=== PATIENT | male | born 1995 | race Caucasian/White ===

== ENCOUNTER 2024-05-22 20:55 | Inpatient (IN) | payer MEDICARE, MEDICAID ==
[2024-05-22] MEDS ORDERED: ACETAMINOPHEN TAB 325 MG TAB PO PRN (20:59)
[2024-05-22] MEDS ORDERED: IBUPROFEN 600 MG TAB PO PRN (20:59)
[2024-05-22] MEDS ORDERED: MAG HYDROX/AL HYDROX/SIMETH 355 ML BOTTLE PO PRN (20:59)
[2024-05-22] MEDS ORDERED: MAGNESIUM HYDROXIDE 2,400 MG/30 ML CUP PO PRN (20:59)
[2024-05-22] MEDS ORDERED: haloperidoL 5 MG TAB PO PRN (20:59)
[2024-05-22] MEDS ORDERED: HALOPERIDOL LACTATE 5 MG/ML 1 ML VIAL IM PRN (20:59)
[2024-05-22] MEDS ORDERED: LORazepam 2 MG/ML INJ IM PRN (20:59)
[2024-05-22] MEDS: LORazepam 1 MG TAB PO PRN (23:25)
--- NOTE | 2024-05-23 04:02 | P.PN ---
Progress Note - Text Progress Note Date: 05/23/24 Attempted to see the patient in the MHU. Informed by the MHU RN that the patient is currently sedated and inappropriate for evaluation. I will attempt to see the patient again tomorrow.
[2024-05-23] MEDS: NICOTINE 14MG/24HR PATCH TRANSDERM SCH (10:22)
[2024-05-23 13:57] LABS: Basophils # (A) 0.1 k/uL (0-0.2); Basophils % (A) 2 %; Eosinophils # (A) 0.1 k/uL (0-0.7); Eosinophils % (A) 3 %; HCT 42.1 % (39.0-53.0); HGB 13.8 gm/dL (13.0-17.5); Lymphocytes # (A) 1.4 k/uL (1.0-4.8); Lymphocytes % (A) 34 %; MCH 29.5 pg (25.0-35.0); MCHC 32.9 g/dL (31.0-37.0); MCV 89.8 fL (80.0-100.0); Mean Platelet Volume 6.8; Monocytes # (A) 0.2 k/uL (0-1.0); Monocytes % (A) 5 %; Neutrophils # (A) 2.3 k/uL (1.3-7.7); Neutrophils % (A) 54 %; Platelet Count 289 k/uL (150-450); RDW 13.7 % (11.5-15.5); WBC 4.2 k/uL (3.8-10.6)
[2024-05-23 14:18] LABS: ALT 15 U/L (4-49); AST 18 U/L (17-59); African American GFR (CKD) >90 (>60 ml/min/1.73 sqM); Albumin 4.3 g/dL (3.5-5.0); Alkaline Phosphatase 62 U/L (38-126); Anion Gap 2 mmol/L; Bilirubin, Delta 0.1 mg/dL (0.0-0.2); Bilirubin,Unconjugated 0.7 mg/dL (0.0-1.1); Blood Urea Nitrogen 13 mg/dL (9-20); Calcium 9.5 mg/dL (8.4-10.2); Carbon Dioxide 26 mmol/L (22-30); Chloride 107 mmol/L (98-107); Glucose 90 mg/dL (74-99); Non-African American GFR(CKD) >90 (>60 ml/min/1.73 sqM); Potassium 4.5 mmol/L (3.5-5.1); Sodium 135 mmol/L (137-145); Total Bilirubin 0.8 mg/dL (0.2-1.3); Total Protein 6.7 g/dL (6.3-8.2)
--- NOTE | 2024-05-23 14:52 | P.HP ---
Psychiatric H&P - . H&P Date: 05/23/24 History & Physical: Allergies Allergy/AdvReac Type Severity Reaction Status Date / Time No Known Allergies Allergy Verified 05/23/24 03:27 Vital Signs Temp 98.5 F 05/23/24 06:53 Pulse 87 05/23/24 06:53 Resp 15 05/23/24 06:53 BP 94/58 05/23/24 06:53 Pulse Ox 100 05/23/24 06:53 FiO2 Intake & Output 05/22/24 05/23/24 05/23/24 18:59 06:59 18:59 Weight 77.5 kg Laboratory Last Values WBC 4.2 k/uL (3.8-10.6) 05/23/24 13:34 RBC 4.70 m/uL (4.30-5.90) 05/23/24 13:34 Hgb 13.8 gm/dL (13.0-17.5) 05/23/24 13:34 Hct 42.1 % (39.0-53.0) 05/23/24 13:34 MCV 89.8 fL (80.0-100.0) 05/23/24 13:34 MCH 29.5 pg (25.0-35.0) 05/23/24 13:34 MCHC 32.9 g/dL (31.0-37.0) 05/23/24 13:34 RDW 13.7 % (11.5-15.5) 05/23/24 13:34 Plt Count 289 k/uL (150-450) 05/23/24 13:34 MPV 6.8 05/23/24 13:34 Neutrophils % 54 % 05/23/24 13:34 Lymphocytes % 34 % 05/23/24 13:34 Monocytes % 5 % 05/23/24 13:34 Eosinophils % 3 % 05/23/24 13:34 Basophils % 2 % 05/23/24 13:34 Neutrophils # 2.3 k/uL (1.3-7.7) 05/23/24 13:34 Lymphocytes # 1.4 k/uL (1.0-4.8) 05/23/24 13:34 Monocytes # 0.2 k/uL (0-1.0) 05/23/24 13:34 Eosinophils # 0.1 k/uL (0-0.7) 05/23/24 13:34 Basophils # 0.1 k/uL (0-0.2) 05/23/24 13:34 Sodium 135 mmol/L (137-145) L 05/23/24 13:34 Potassium 4.5 mmol/L (3.5-5.1) 05/23/24 13:34 Chloride 107 mmol/L (98-107) 05/23/24 13:34 Carbon Dioxide 26 mmol/L (22-30) 05/23/24 13:34 Anion Gap 2 mmol/L 05/23/24 13:34 BUN 13 mg/dL (9-20) 05/23/24 13:34 Creatinine 0.74 mg/dL (0.66-1.25) 05/23/24 13:34 Est GFR (CKD-EPI)AfAm >90 (>60 ml/min/1.73 sqM) 05/23/24 13:34 Est GFR (CKD-EPI)NonAf >90 (>60 ml/min/1.73 sqM) 05/23/24 13:34 Glucose 90 mg/dL (74-99) 05/23/24 13:34 Calcium 9.5 mg/dL (8.4-10.2) 05/23/24 13:34 Total Bilirubin 0.8 mg/dL (0.2-1.3) 05/23/24 13:34 Conjugated Bilirubin 0.0 mg/dL (0.0-0.3) 05/23/24 13:34 Unconjugated Bilirubin 0.7 mg/dL (0.0-1.1) 05/23/24 13:34 Delta Bilirubin 0.1 mg/dL (0.0-0.2) 05/23/24 13:34 AST 18 U/L (17-59) 05/23/24 13:34 ALT 15 U/L (4-49) 05/23/24 13:34 Alkaline Phosphatase 62 U/L (38-126) 05/23/24 13:34 Total Protein 6.7 g/dL (6.3-8.2) 05/23/24 13:34 Albumin 4.3 g/dL (3.5-5.0) 05/23/24 13:34 05/23/24 14:46 IDENTIFYING DATA: Patient is a 28-year-old male, currently homeless collects Social Security disability, he is single he has no kids. HPI: Patient presented to the hospital as a transfer from [facility]. According to E APS report he apparently attempted to overdose on multiple recreational drugs, was endorsing depression suicidal ideations also endorsing visual and auditory hallucinations prior to arrival. Patient was seen today wandering the hallways agreeable to speak to appeals writer. He had several cuts and scars over his arms, appeared to be disheveled in appearance. States that he was at [facility] for 1-1/2 days waiting for placement. Claims that he arrived yesterday. Claims that he has been making "a lot of bad decisions" and states that he has been hanging around "bad people". He was fairly vague about what he was referring to. He states that he has been using several different drugs recently. States that he does have a long substance use history. He spoke about using meth, heroin, crack cocaine marijuana and also cigarettes. States that he has been feeling more depressed lately. States that he also deals with anxiety. Claims that he still feeling minor withdrawals from drugs. He was fairly irritable during conversation and argumentative at times. Claims that he is endorsing some paranoia, sleep has been on and off appetite has been fair. Patient denies any current suicidal or homicidal ideations intent or plan. At this time patient denies any auditory or visual hallucinations. Patient admits to using methamphetamine, cocaine, heroin, THC regularly, claims that he smokes cigarettes daily. He was fairly vague about his drug use. PAST PSYCHIATRIC HISTORY: Patient has a history of polysubstance abuse, states that he also has a history of schizoaffective disorder and traumatic brain injury. He claims that he has been on several different psychiatric medications in the past, most notably he has been on Haldol D1 100 mg given by the [facility] in [place]. Is been psychiatrically admitted several times in the past, claims that he most recently was admitted to [facility]. States that he has had several different suicide attempts in the past including overdosing and cutting himself. PMH: as per ER note ALLERGIES: as per EMR CHEMICAL DEPENDENCY HISTORY: as per HPI FAMILY PSYCHIATRIC/SUBSTANCE USE HISTORY: Denies SOCIAL HISTORY: Patient was born and raised in claims that he grew up in [place]. Claims that he completed high school states that he has been in intermediate in the past for probation violation. He is single, he has no kids, he collect Social Security disability. He is homeless. MENTAL STATUS EXAM: General Appearance: Patient appears to be disheveled in appearance, several scars and cuts on his arms, stated age is alert, irritable,. Patient appears to have poor hygiene and grooming. Behavior: Patient is seated without any agitated behavior. Irritable tone, argumentative. Speech: Patient's speech is fluent and nonpressured. Mood/Affect: Patient reports their mood is depressed, affect is congruent and constricted. Suicidality/Homicidality: Patient denies having any homicidal ideation intent or plan. Denies any suicidal ideations intent or plan Perceptions: Patient denies any visual hallucinations and denies any auditory hallucinations Though content/process: There is no evidence of any delusional thought content and thought process is linear and goal-directed. On [place], evasive. Memory and concentration: AOX3, grossly intact for the purposes of this session. Can spell "WORLD" backwards Judgment and insight: Poor STRENGTHS/WEAKNESSES: strength is that patient is resilient. Weakness is that patient has poor judgment and is impulsive INTELLECT: Average IMPRESSIONS: Suicide attempt by overdose on recreational drugs Schizoaffective disorder Traumatic brain injury Methamphetamine use disorder Opioid abuse Cocaine abuse Cannabis use disorder Nicotine dependence Homelessness PLAN: -Patient is admitted under voluntary status to MHU for stabilization of psychiatric symptoms and safety. Patient has signed adult voluntary form and medication consent and is placed in patient's chart. -Medications : Start Prolixin 2.5 mg twice daily for psychosis/mood stabilization, Zoloft 50 mg nightly for mood/anxiety, Remeron 15 mg nightly for sleep/mood. -Ativan and Haldol PRN for agitation/aggression -Patient was counselled on substance abuse and desired to cut back on use -Patient was informed of the risks, benefits and side effects of the medication and patient verbally consented to taking the medications. Patient signed med consent form and was placed in chart. -Internal Medicine consult to perform medical evaluation and physical. -NRT -nicotine patch -SW on board for discharge planning. Encourage patient to participate in groups to work on coping skills.
[2024-05-23] MEDS: MIRTAZAPINE 15 MG TAB PO SCH (21:23)
[2024-05-23] MEDS: SERTRALINE 50 MG TAB PO SCH (21:23)
[2024-05-23 23:15] LABS: Chol/HDL Ratio 2.29 Ratio; LDL Cholesterol,Calculated 43.1 mg/dL (0.0-131.0); VLDL Calculation 19.96 mg/dL (5.00-40.00)
--- NOTE | 2024-05-24 04:54 | P.PN ---
Progress Note - Text Progress Note Date: 05/24/24 Attempted to see the patient in the MHU on 05/23 at 2100. The patient refused to be seen or be evaluated.
--- NOTE | 2024-05-24 13:13 | P.PN ---
Progress Note - Text Progress Note Date: 05/24/24 Follow-up Mediation Review Chief Complaint: I am suicidal Subjective: The patient noted that he got admitted due to suicidal thoughts and hearing voices. The patient has h/o of several suicide attempts in the past. He wanted to take overdose of recreational drugs before coming to the hospital. The patient noted that he got depressed because he is unable to give up drugs. He wants to go to rehab from the hospital He noted using Meth and heroin. The patient noted that he is on disability for Bipolar, Schizoaffective ADHD and TBI. He started doing drugs around age 25. The patient Leading questions: The patient admitted to Depression and Anxiety. Admits SI. No HI. Admits to hearing voices. Sleep and Appetite: Impaired. Change in family/ living/job/financial/daily routine: No change. Change in medical condition: No change. Change in medications: No change. Side effects from Medications: None. Allergies: No change. Objective- MSE: Alert and attentive. Orientation times three. Dressed and Groomed: Appropriately. Pleasant and cooperative. Psychomotor Activity: Normal. Speech: Normal in tone, quality, and quantity. Mood: Depressed and anxious. Affect: Consistent with mood. SI or HI: None. Perceptual disturbance: Hears voices. Thought Content: No paranoia or other delusional thinking noted. Thought Process: Normal. Cognition: Intact Judgment and Insight: Poor. AIMS: Normal. Labs: No new labs. Diagnosis: Plan and Recommendations: Continue current Medications. Monitor MS and side effects of medications and adjust medications accordingly. Provide supportive psychotherapy. The patient provided psychoeducation and advised The patient provided Substance abuse counseling. Smoke cessation therapy. The patient to attend dumont activities. Medication Consent with explanation of risk/benefits and side effects: Explained and obtained.
[2024-05-25 07:18] VITALS: RESP 16; TEMP 97.7
--- NOTE | 2024-05-26 00:38 | P.PN ---
Progress Note - Text Progress Note Date: 05/26/24 Attempted to see the patient in the MHU at 1999 on 05/25. The patient refused to be seen or be evaluated. The patient's laboratory evaluation was reviewed with TSH 0.267 with a free T4 within normal limits at 1.00.
[2024-05-26 06:50] VITALS: BP 111/72; PULSE 64
--- NOTE | 2024-05-26 06:53 | P.PN ---
Progress Note - Text Progress Note Date: 05/25/24 Follow-up Mediation Review Chief Complaint: I am coming off drugs Subjective: The patient noted that coming off drugs is hard. He feels tired and spends most of the time in his bed. He noted he is not suicidal, homicidal, or hearing voices. He indicated that he heard voices because of the drugs he was taking. He wants to go for rehab. He does not think that he needs treatment for depression. He noted that he has not been depressed or suicidal since admission. He noted that he was admitted for being suicidal and hearing voices. He wants to be discharged. He feels the medications are helping. He has plans to go to rehab. He has talked to rehab facility. certified social workers in health care will find out about his acceptance. Leading questions: The patient denied being depressed. Denied SI or HI. Denied paranoia any other delusional thinking or hearing voices. Sleep and Appetite: Impaired. Objective- MSE: Alert and attentive. Orientation times three. Dressed and Groomed: Appropriately. Pleasant and cooperative. Psychomotor Activity: Normal. Speech: Normal in tone, quality, and quantity. Mood: Mild anxiety. Affect: Consistent with mood. SI or HI: None. Perceptual disturbance: None. Thought Content: No paranoia or other delusional thinking noted. Thought Process: Normal. Cognition: Intact Judgment and Insight: Fair. AIMS: Normal. Labs: No new labs. Diagnosis: No change. Plan and Recommendations: Continue current Medications. Monitor MS and side effects of medications and adjust medications accordingly. Provide supportive psychotherapy. The patient provided psychoeducation and advised The patient provided Substance abuse counseling. Smoke cessation therapy. The patient to attend dumont activities. Medication Consent with explanation of risk/benefits and side effects: Explained and obtained.
[2024-05-26 12:14] LABS: Appearance,Urine Clear (Clear); Bilirubin,Urine Negative (Negative); Blood,Urine Negative (Negative); Color,Urine Light Yellow; Glucose,Urine (UA) Negative (Negative); Ketones,Urine Negative (Negative); Leukocyte Esterase,Urine Negative (Negative); Nitrite,Urine Negative (Negative); Protein,Urine Negative (Negative); Specific Gravity,Urine 1.023 (1.001-1.035); Urobilinogen,Urine <2.0 mg/dL (<2.0)
--- NOTE | 2024-05-26 13:26 | P.DS ---
Providers Date of admission: 05/22/24 22:58 Expected date of discharge: 05/26/24 Attending physician: Braeden Johnson MD Consults: 05/22/24 20:59 Consult Physician Routine Consulting Provider: Tangela Wheeler Consult Reason/Comments: History and Physical Do you want consulting provider notified?: Yes Primary care physician: Physician Nonstaff - Discharge Diagnosis(es) (1) Schizoaffective disorder Current Visit: Yes Status: Acute Priority: High (2) Polysubstance abuse Current Visit: Yes Status: Acute Priority: High Hospital Course: Discharge Summary HPI: IDENTIFYING DATA: Patient is a 28-year-old male, currently homeless collects Social Security disability, he is single he has no kids. HPI: Patient presented to the hospital as a transfer from [facility]. According to E APS report he apparently attempted to overdose on multiple recreational drugs, was endorsing depression suicidal ideations also endorsing visual and auditory hallucinations prior to arrival. Patient was seen today wandering the hallways agreeable to speak to underwriter mortgage loan. He had several cuts and scars over his arms, appeared to be disheveled in appearance. States that he was at [facility] for 1-1/2 days waiting for placement. Claims that he arrived yesterday. Claims that he has been making "a lot of bad decisions" and states that he has been hanging around "bad people". He was vague about what he was referring to. He states that he has been using several different drugs recently. States that he does have a long substance use history. He spoke about using meth, heroin, crack cocaine marijuana and also cigarettes. States that he has been feeling more depressed lately. States that he also deals with anxiety. Claims that he still feeling minor withdrawals from drugs. He was irritable during conversation and argumentative at times. Claims that he is endorsing some paranoia, sleep has been on and off appetite has been fair. Patient denies any current suicidal or homicidal ideations intent or plan. At this time patient denies any auditory or visual hallucinations. Patient admits to using methamphetamine, cocaine, heroin, THC regularly, claims that he smokes cigarettes daily. He was fairly vague about his drug use. PPH: Patient has a history of polysubstance abuse, states that he also has a history of schizoaffective disorder and traumatic brain injury. He claims that he has been on several different psychiatric medications in the past, most notably he has been on Haldol D1 100 mg given by the [facility] in [place]. Is been psychiatrically admitted several times in the past, claims that he most recently was admitted to [facility]. States that he has had several different suicide attempts in the past including overdosing and cutting himself. PMH: as per ER note CHEMICAL DEPENDENCY HISTORY: as per HPI Hospital Course: After admission, the patient was involved in pharmacotherapy, dumont milieu, and individual psychodynamic psychotherapy. The patient was started Prolixin, Remeron, and Zoloft. . The dose was titrated to obtain the desire effects. The patient tolerated medications well without any side effects. The patient was also involved in dumont activities. The patient attended the groups and participated well. The patient interacted with peers and staff well. The patient slowly started showing improvement. The hospital course was uneventful. The patient symptoms of depression, suicidal and homicidal ideations abated. The psychosis improved. The patient was stable to be discharged to out-patient care. The patient did not have any guns or weapons in possession at home. MSE: General Appearance: Patient appears to be disheveled in appearance, several scars and cuts on his arms, stated age is alert, irritable,. Patient appears to have poor hygiene and grooming. Behavior: Patient is seated without any agitated behavior. Irritable tone, argumentative. Speech: Patient's speech is fluent and nonpressured. Mood/Affect: Patient reports their mood is depressed, affect is congruent and constricted. Suicidality/Homicidality: Patient denies having any homicidal ideation intent or plan. Denies any suicidal ideations intent or plan Perceptions: Patient denies any visual hallucinations and denies any auditory hallucinations Though content/process: There is no evidence of any delusional thought content and thought process is linear and goal-directed. On [place], evasive. Memory and concentration: AOX3, grossly intact for the purposes of this session. Can spell "WORLD" backwards Judgment and insight: Poor Diagnosis: Schizoaffective disorder Traumatic brain injury Polysubstance abuse Plan: The patient to be discharged today. The patient has attained good improvement since admission. He is stable to be followed as an outpatient. The patient is not suicidal or Homicidal. He does not pose any harm to self or others. The patient remains at a greater risk of self-harm or harm to others than general population on a chronic basis due to psychiatric illness and substance abuse. The patient will continue taking following medication post discharge. The importance of medication compliance and maintaining regular appointments at psychiatric out-pt and PCP clinic was explained and encouraged. The patient was also advised to seek alcohol counseling and attend AA/NA meetings. The understood and agreed with the recommendations. auto body worker to arrange for and conduct family meeting to ensure safety upon discharge and answer any questions. The psychiatric social worker supervisor to arrange for patients follow-up appointments at [facility] for psychiatric care along with follow-up with PCP. The patient provided psychoeducation. Advised to call 911 or go to nearest ED or call this hospital in case of acute worsening of symptomatology, severe side effects or having suicidal, homicidal thoughts and feeling unsafe at home. Patient Condition at Discharge: Stable Plan - Discharge Summary Discharge Rx Participant: Yes New Discharge Prescriptions: New fluPHENAZine [Prolixin 5MG] 2.5 mg PO BID 8 Days #4 tablet Sertraline HCl [Zoloft] 50 mg PO DAILY 7 Days #7 tablet Mirtazapine [Remeron] 7.5 mg PO HS 8 Days #4 tab Continue Haloperidol Decanoate [Haldol D] 200 mg IM Q28D Discharge Medication List Haloperidol Decanoate [Haldol D] 200 mg IM Q28D 05/24/24 [History] Mirtazapine [Remeron] 7.5 mg PO HS 8 Days #4 tab 05/26/24 [Rx] Sertraline HCl [Zoloft] 50 mg PO DAILY 7 Days #7 tablet 05/26/24 [Rx] fluPHENAZine [Prolixin 5MG] 2.5 mg PO BID 8 Days #4 tablet 05/26/24 [Rx] Activity/Diet/Wound Care/Special Instructions: Avoid the use of street drugs and alcohol. Take all medications as prescribed. When you are in need of refills on your medications, please contact your medical provider and/or outpatient psychiatrist/provider to have this done. Please go to your scheduled outpatient appointment for aftercare treatment. If symptoms return or become worse, call the crisis line at and/or go to the nearest emergency room for evaluation. National Suicide Hotline 796
[2024-05-26 23:31] LABS: Urine Alcohol Negative (Negative); Urine Barbiturate Negative (Negative); Urine Cocaine Negative (Negative); Urine Methadone Negative (Negative); Urine Opiates Negative (Negative); Urine Phencyclidine Negative (Negative)
== END 2024-05-26 14:56 | disposition home or self-care (01) | DRG 918 ==
LOC: 3MHU 22:58
PROVIDERS: ADMIT Psychiatry & Neurology Psychiatry; ATTEND Psychiatry & Neurology Psychiatry
DX: T50.912A Poisoning by multiple unspecified drugs, medicaments and biological substances, intentional self-harm, initial encounter (principal); F25.9 Schizoaffective disorder, unspecified; F11.10 Opioid abuse, uncomplicated; F12.10 Cannabis abuse, uncomplicated; F14.10 Cocaine abuse, uncomplicated; F15.10 Other stimulant abuse, uncomplicated; F32.A Depression, unspecified; F41.9 Anxiety disorder, unspecified; F90.9 Attention-deficit hyperactivity disorder, unspecified type; Z91.51 Personal history of suicidal behavior; Z71.51 Drug abuse counseling and surveillance of drug abuser; Z71.6 Tobacco abuse counseling; Z87.820 Personal history of traumatic brain injury
CPT/HCPCS: 80053; 80061; 80306; 81003; 82248; 83036; 84439; 84443; 85025